=== PATIENT | female | born 1940 | race Caucasian/White ===

== ENCOUNTER → 2018-09-28 | Outpatient (CLI) | payer MEDICARE, BC ==
[~2018-09-28] MED LIST: ALENDRONATE; ATIVAN1 MG PO; AVAPRO 150 MG150 M1 PO; MOBIC15 MG PO; NORCO 5-325 TA1 EACH PO; PERCOCET 5-3251 EACH PO; PHENERGAN 25 MG25 M1 PO; PHENERGAN PO; PHENERGAN12.5 M1 RC; TOPROL XL50 MG PO; ZOFRAN ODT4 MG PO
== END ==
LOC: M.RAD 14:17
DX: J15.8 Pneumonia due to other specified bacteria (principal); M41.86 Other forms of scoliosis, lumbar region

== ENCOUNTER → 2018-10-26 | Outpatient (CLI) | payer MEDICARE, BC | LOC: M.RAD 14:27 | DX: J98.11 Atelectasis (principal); J15.8 Pneumonia due to other specified bacteria ==